=== PATIENT | female | born 1990 ===

== ENCOUNTER → 2018-09-03 14:18 | Outpatient (CLI) | payer OTHER, SELFPAY ==
--- NOTE | 2018-09-03 | DI.US.S_ITS ---
PROCEDURE: US OB LIMITED INDICATIONS: INITIAL SIZE AND DATING OUTSIDE/PRIOR DATING DATA: Last menstrual period (LMP): Unknown. LMP-based estimated date of delivery (LOR): Unknown First dating scan (date and location): This examination Estimated date of delivery (LOR) from first dating scan: 02/16/19. TECHNIQUE: Real-time scanning was performed of the fetus, with image documentation. Endovaginal scanning: Not performed COMPARISON: None. FINDINGS: A single living intrauterine gestation is present. Presentation: Variable. Placenta: Placental position is posterior/fundal, without previa. Amniotic fluid index: 12.1 cm, normal range is 5-24 cm. heart rate: 158 beats per minute. Maternal cervical canal: 4.7 cm long. Normal lower limit is 2.5 cm. Estimated gestational age from initial scan: Not applicable. Normal appearance of 4 chamber heart, chest, urinary bladder, cord insertion and stomach. There is mild prominence of the renal pelves measuring 4 mm, although recommend definitive assessment at the 20 week examination. IMPRESSION: Single living intrauterine fetus in variable presentation demonstrating a gestational age of 16 weeks and 2 days by today's ultrasound measurements. Growth assessment precluded by lack of first trimester ultrasound or known LMP, and recommend followup at 20 weeks. Dictated by: Aldo Rodriguez M.D. on 09/03/2018 at 15:36 Approved by: Aldo Rodriguez M.D. on 09/03/2018 at 15:58
== END ==
PROVIDERS: PCP Family Medicine; Visit Provider Family Medicine
DX: Z34.92 Encounter for supervision of normal pregnancy, unspecified, second trimester (principal); Z3A.16 16 weeks gestation of pregnancy
CPT/HCPCS: 76801; 76815